=== PATIENT | female | born 1935 | race American Indian/Alaskan Native ===

== ENCOUNTER 2018-02-26 17:22 | Emergency (ER) | payer MEDICARE ==
[2018-02-26 17:48] VITALS: BP 168/83; RESP 18; TEMP 99.2
--- NOTE | 2018-02-26 19:04 | C.PDOC ---
History Of Present Illness 82 y/o female brought in by daughter for evaluation of left dental swelling/ pain. Daughter states she noticed swelling along the patients left jaw a few days ago. Patient has been eating soft foods. They tried to see dentist, who is currently away. They have an appointment for Mar 03. Then they tried to see PMD Dr. Rupinder Bee, who was also not in the office. No fever. No swollen glands. Time Seen by Provider: 02/26/18 18:35 Chief Complaint (Nursing): Dental Pain History Per: Patient History/Exam Limitations: no limitations Onset/Duration Of Symptoms: Days Current Symptoms Are (Timing): Still Present Past Medical History Reviewed: Historical Data, Nursing Documentation, Vital Signs Vital Signs: Last Vital Signs Temp 99.2 F 02/26/18 17:44 Pulse 80 02/26/18 17:44 Resp 18 02/26/18 17:44 BP 168/83 H 02/26/18 17:44 Pulse Ox 98 02/26/18 19:08 - Medical History PMH: HTN Surgical History: Pacemaker Family History: States: No Known Family Hx - Social History Hx Alcohol Use: No Hx Substance Use: No - Immunization History Hx Tetanus Toxoid Vaccination: No Hx Influenza Vaccination: No Hx Pneumococcal Vaccination: No Review Of Systems Except As Marked, All Systems Reviewed And Found Negative. Constitutional: Negative for: Fever, Chills ENT: Positive for: Other (Left jaw pain and swelling, with gum swelling) Cardiovascular: Negative for: Chest Pain Respiratory: Negative for: Shortness of Breath Gastrointestinal: Negative for: Vomiting, Diarrhea Neurological: Negative for: Weakness, Numbness Physical Exam - Physical Exam Appears: Non-toxic, No Acute Distress Skin: Normal Color, Warm, Dry Head: Atraumatic, Normacephalic Eye(s): bilateral: Normal Inspection, PERRL, EOMI Teeth: Other (Partial plate to lower mandible) Gingiva: Swelling (mild swelling along gingiva at left lower anterior gum line, (+) tenderness) Neck: Normal ROM, Supple Lymphatic: No Adenopathy Chest: Symmetrical Cardiovascular: Rhythm Regular, No Murmur Respiratory: Normal Breath Sounds, No Rales, No Rhonchi, No Wheezing Extremity: Bilateral: Atraumatic, Normal Color And Temperature, Normal ROM Neurological/Psych: Oriented x3, Normal Speech Gait: Steady ED Course And Treatment O2 Sat by Pulse Oximetry: 98 (RA) Pulse Ox Interpretation: Normal - Physician Consult Information Time Consulting Physician Contacted: 19:03 Physician Contacted: Rupinder Aguilar Disposition Counseled Patient/Family Regarding: Diagnosis, Need For Followup, Rx Given - Disposition Referrals: Rupinder Aguilar MD [Staff Provider] - Disposition: HOME/ ROUTINE Disposition Time: 19:11 Condition: STABLE Additional Instructions: Do a salt water rinse after meals. Take Tylenol as needed for pain. Prescriptions: Amoxicillin 875 mg PO BID #20 tablet Instructions: Tooth Abscess (DC) Forms: [id number] (German) - Clinical Impression Clinical Impression: Dental abscess - Scribe Statement The provider has reviewed the documentation as recorded by the Scribe (Claudia Dominguez) Provider Attestation: All medical record entries made by the Scribe were at my direction and personally dictated by me. I have reviewed the chart and agree that the record accurately reflects my personal performance of the history, physical exam, medical decision making, and the department course for this patient. I have also personally directed, reviewed, and agree with the discharge instructions and disposition.
[2018-02-26] MEDS ORDERED: Amoxicillin-Clav 875-125 mg Tab PO ONE (19:23)
[2018-02-26 19:34] VITALS: PULSE 88; O2SAT 99
== END 2018-02-26 19:35 | disposition home or self-care (01) ==
LOC: C.ER 17:22
DX: K04.7 Periapical abscess without sinus (principal)

== ENCOUNTER 2018-09-16 14:03 | Observation (INO) | payer MEDICARE ==
[2018-09-16 16:31] LABS: BASO # 0.1 K/uL (0.0-0.2); BASO % 0.6 % (0.0-2.0); EOS % 0.3 % (0.0-4.0); HEMOGLOBIN 10.4 g/dL (11.0-16.0); LYMPH # 1.9 K/uL (1.0-4.3); LYMPH % 23.1 % (20.0-40.0); MEAN CORPUSCULAR HEMOGLOBIN 26.5 pg (27.0-31.0); MEAN CORPUSCULAR HGB CONC 31.6 g/dL (33.0-37.0); MONO # 0.7 K/uL (0.0-0.8); MONO % 8.5 % (0.0-10.0); NEUT # 5.7 K/uL (1.8-7.0); NEUT % 67.5 % (50.0-75.0); NRBC % 0.1 % (0.0-2.0); RBC 3.91 Mil/uL (3.80-5.20); RED CELL DISTRIBUTION WIDTH 15.2 % (11.5-14.5); WHITE BLOOD COUNT 8.4 K/uL (4.8-10.8)
--- NOTE | 2018-09-16 16:40 | RAD ---
Date of service: 09/16/2018 PROCEDURE: CHEST RADIOGRAPH, 1 VIEW HISTORY: chest pain COMPARISON: None available. FINDINGS: LUNGS: Clear. PLEURA: No pneumothorax or pleural fluid seen. CARDIOVASCULAR: There is presence of aortic atherosclerotic calcification on x-ray. Cardiomegaly Position/ configuration of pacemaker Satisfactory. No significant appearing pulmonary venous congestion. OSSEOUS STRUCTURES: Bilateral shoulder arthrosis VISUALIZED UPPER ABDOMEN: Normal. OTHER FINDINGS: None. IMPRESSION: No acute cardiopulmonary pathology noted.
[2018-09-16 16:52] LABS: ALBUMIN 4.6 g/dL (3.5-5.0); AST/SGOT 29 U/L (14-36); BLOOD UREA NITROGEN 26 mg/dL (7-17); CALCIUM 10.3 mg/dl (8.6-10.4); GFR NON-AFRICAN AMERICAN 48; INR 1.4; PROTHROMBIN TIME 14.8 SECONDS (9.7-12.2)
[2018-09-16 17:03] LABS: B-TYPE NATRIURETIC PEPTIDE 363 pg/mL (0-900)
--- NOTE | 2018-09-16 17:03 | C.PDOC ---
History Of Present Illness 83 y/o female,w/PMhx of diabetes, HTN,and pacemaker, presents to the ER for pacemaker battery change. Patient states that she went to her PMD, who referred her to , web site admin. Dr. Medina advised her to the go the ER so she can be admitted for pacemaker battery change.Denies having fever,chills, CP,SOB, nausea, and vomiting. Time Seen by Provider: 09/16/18 15:49 Chief Complaint (Nursing): Medical Clearance History Per: Patient History/Exam Limitations: no limitations Onset/Duration Of Symptoms: Days Current Symptoms Are (Timing): Still Present Severity: Moderate Past Medical History Reviewed: Historical Data, Nursing Documentation, Vital Signs Vital Signs: Last Vital Signs Temp 98.3 F 09/16/18 15:47 Pulse 85 09/16/18 14:36 Resp 16 09/16/18 14:36 BP 166/70 H 09/16/18 14:36 Pulse Ox 100 09/16/18 14:36 - Medical History PMH: HTN Surgical History: Pacemaker Family History: States: No Known Family Hx - Social History Hx Alcohol Use: No Hx Substance Use: No - Immunization History Hx Tetanus Toxoid Vaccination: No Hx Influenza Vaccination: No Hx Pneumococcal Vaccination: No Review Of Systems Except As Marked, All Systems Reviewed And Found Negative. Constitutional: Negative for: Fever, Chills Cardiovascular: Negative for: Chest Pain Respiratory: Negative for: Shortness of Breath Gastrointestinal: Negative for: Nausea, Vomiting Physical Exam - Physical Exam Appears: Non-toxic, No Acute Distress Skin: Normal Color, Warm, Dry Head: Atraumatic, Normacephalic Eye(s): bilateral: Normal Inspection Nose: Normal Oral Mucosa: Moist Neck: Supple Chest: Symmetrical Cardiovascular: Rhythm Regular Respiratory: Normal Breath Sounds, No Rales, No Rhonchi, No Wheezing Gastrointestinal/Abdominal: Normal Exam, Soft, No Tenderness, No Guarding, No Rebound Neurological/Psych: Oriented x3, Normal Speech ED Course And Treatment - Laboratory Results Result Diagrams: 09/16/18 16:20 09/16/18 16:20 Lab Results: PT 14.8 SECONDS (9.7-12.2) H 09/16/18 16:20 INR 1.4 09/16/18 16:20 APTT 38 SECONDS (21-34) H 09/16/18 16:20 Total Bilirubin 0.4 mg/dL (0.2-1.3) 09/16/18 16:20 AST 29 U/L (14-36) 09/16/18 16:20 Alkaline Phosphatase 92 U/L (38-126) 09/16/18 16:20 Total Protein 9.1 g/dL (6.3-8.3) H 09/16/18 16:20 Albumin 4.6 g/dL (3.5-5.0) 09/16/18 16:20 Globulin 4.6 gm/dL (2.2-3.9) H 09/16/18 16:20 Albumin/Globulin Ratio 1.0 (1.0-2.1) 09/16/18 16:20 ECG Rhythm: AV Paced Rate From EC O2 Sat by Pulse Oximetry: 100 (RA) Pulse Ox Interpretation: Normal Medical Decision Making Medical Decision Making: Plan: --Labs --EKG --CXR Updates: 1734: Dr. Medina says to admit to . Patient is NPO after midnight for procedure in the morning 1737: Dr. Amaral agrees to accept patient. Disposition - Disposition Forms: [facility] (Irish) - Scribe Statement The provider has reviewed the documentation as recorded by the Scribe Veronica Wong Provider Attestation: All medical record entries made by the Scribe were at my direction and personally dictated by me. I have reviewed the chart and agree that the record accurately reflects my personal performance of the history, physical exam, medical decision making, and the department course for this patient. I have also personally directed, reviewed, and agree with the discharge instructions and disposition.
[2018-09-16 17:14] LABS: ALT/SGPT < 6 U/L (9-52)
--- NOTE | 2018-09-17 00:02 | CP.PCM.CON ---
History of Present Illness - History of Present Illness History of Present Illness: 83 y/o female,w/PMhx of diabetes, HTN,and pacemaker, presents to the ER for pacemaker battery change. Patient states that she went to her PMD, sent by me to be admitted for pacemaker battery change.Denies having fever,chills, CP,SOB, n ausea, and vomiting. Chief Complaint (Nursing): PPM battery run out History Per: Patient History/Exam Limitations: no limitations Onset/Duration Of Symptoms: Days Current Symptoms Are (Timing): Still Present Severity: Moderate Past Medical History Reviewed: Historical Data, Nursing Documentation, Vital Signs Vital Signs: Last Vital Signs Temp 98.3 F 09/16/18 15:47 Pulse 85 09/16/18 14:36 Resp 16 09/16/18 14:36 BP 166/70 H 09/16/18 14:36 Pulse Ox 100 09/16/18 14:36 - Medical History PMH: HTN Surgical History: Pacemaker Family History: States: No Known Family Hx - Social History Hx Alcohol Use: No Hx Substance Use: No - Immunization History Hx Tetanus Toxoid Vaccination: No Hx Influenza Vaccination: No Hx Pneumococcal Vaccination: No Review Of Systems Except As Marked, All Systems Reviewed And Found Negative. Constitutional: Negative for: Fever, Chills Cardiovascular: Negative for: Chest Pain Respiratory: Negative for: Shortness of Breath Gastrointestinal: Negative for: Nausea, Vomiting Physical Exam - Physical Exam Appears: Non-toxic, No Acute Distress Skin: Normal Color, Warm, Dry Head: Atraumatic, Normacephalic Eye(s): bilateral: Normal Inspection Nose: Normal Oral Mucosa: Moist Neck: Supple Chest: Symmetrical Cardiovascular: Rhythm Regular Respiratory: Normal Breath Sounds, No Rales, No Rhonchi, No Wheezing Gastrointestinal/Abdominal: Normal Exam, Soft, No Tenderness, No Guarding, No Rebound Neurological/Psych: Oriented x3, Normal Speech Past Patient History - Past Social History Smoking Status: Never Smoked - CARDIAC Hx Hypertension: Yes Hx Pacemaker: Yes - ENDOCRINE/METABOLIC Hx Diabetes Mellitus Type 2: Yes - PSYCHIATRIC Hx Substance Use: No - SURGICAL HISTORY Hx Surgeries: Yes Other/Comment: Pace MAker insertion 15 yrs ago - ANESTHESIA Hx Anesthesia: Yes Hx Anesthesia Reactions: No Hx Malignant Hyperthermia: No Meds Allergies/Adverse Reactions: Allergies Allergy/AdvReac Type Severity Reaction Status Date / Time No Known Allergies Allergy Verified 09/16/18 14:39 - Medications Medications: Current Medications Aspirin (Aspirin) 325 mg PO DAILY [facility] Ezetimibe (Zetia) 10 mg PO DAILY [facility] Enoxaparin Sodium (Lovenox) 40 mg SC DAILY [facility] Ferrous Gluconate (Fergon) 324 mg PO DAILY [facility] Hydrochlorothiazide (Hydrodiuril) 25 mg PO DAILY [facility] Influenza Virus Vaccine (Flucelvax Quad 8621-8200 Syr) 60 mcg IM .ONCE ONE Stop: 09/18/18 10:01 Losartan Potassium (Cozaar) 100 mg PO DAILY [facility] Metformin HCl (Glucophage) 850 mg PO DAILY [facility] Pneumococcal Polyvalent Vaccine (Pneumovax 23 Vaccine) 0.5 ml IM .ONCE ONE Stop: 09/18/18 10:01 Rosuvastatin Calcium (Crestor) 10 mg PO HS [facility] Last Admin: 09/16/18 21:26 Dose: 10 mg Results - Vital Signs Recent Vital Signs: Last Vital Signs Temp 98.5 F 09/16/18 21:09 Pulse 78 09/16/18 21:36 Resp 20 09/16/18 21:09 BP 189/89 H 09/16/18 21:34 Pulse Ox 97 09/16/18 21:09 - Labs Result Diagrams: 09/16/18 16:20 09/16/18 16:20 Labs: Laboratory Results - last 24 hr 09/16/18 09/16/18 09/16/18 16:20 16:20 16:20 WBC 8.4 RBC 3.91 Hgb 10.4 L Hct 32.8 L MCV 84.0 MCH 26.5 L MCHC 31.6 L RDW 15.2 H Plt Count 333 MPV 9.0 Neut % (Auto) 67.5 Lymph % (Auto) 23.1 Rolette % (Auto) 8.5 Eos % (Auto) 0.3 Baso % (Auto) 0.6 Neut # (Auto) 5.7 Lymph # (Auto) 1.9 Rolette # (Auto) 0.7 Eos # (Auto) 0.0 Baso # (Auto) 0.1 PT 14.8 H INR 1.4 APTT 38 H Sodium 137 Potassium 4.6 Chloride 100 Carbon Dioxide 27 Anion Gap 15 BUN 26 H Creatinine 1.1 Est GFR ( Amer) 58 Est GFR (Non-Af Amer) 48 Random Glucose 135 H Calcium 10.3 Total Bilirubin 0.4 AST 29 ALT < 6 L Alkaline Phosphatase 92 Troponin I < 0.0120 NT-Pro-B Natriuret Pep 363 Total Protein 9.1 H Albumin 4.6 Globulin 4.6 H Albumin/Globulin Ratio 1.0 Assessment & Plan - Assessment and Plan (Free Text) Assessment: Hx of Complete Heart block s/p PPM For battery change tomorrow by Dr. Bill
--- NOTE | 2018-09-17 00:10 | CP.PCM.HP ---
Present on Admission - Present on Admission Any Indicators Present on Admission: No Past Patient History - Past Social History Smoking Status: Never Smoked - CARDIAC Hx Hypertension: Yes Hx Pacemaker: Yes - ENDOCRINE/METABOLIC Hx Diabetes Mellitus Type 2: Yes - PSYCHIATRIC Hx Substance Use: No - SURGICAL HISTORY Hx Surgeries: Yes Other/Comment: Pace MAker insertion 15 yrs ago - ANESTHESIA Hx Anesthesia: Yes Hx Anesthesia Reactions: No Hx Malignant Hyperthermia: No Meds Allergies/Adverse Reactions: Allergies Allergy/AdvReac Type Severity Reaction Status Date / Time No Known Allergies Allergy Verified 09/16/18 14:39 Results - Vital Signs Recent Vital Signs: Last Vital Signs Temp 98.5 F 09/16/18 21:09 Pulse 78 09/16/18 21:36 Resp 20 09/16/18 21:09 BP 189/89 H 09/16/18 21:34 Pulse Ox 97 09/16/18 21:09 - Labs Result Diagrams: 09/16/18 16:20 09/16/18 16:20 Labs: Laboratory Results - last 24 hr 09/16/18 09/16/18 09/16/18 16:20 16:20 16:20 WBC 8.4 RBC 3.91 Hgb 10.4 L Hct 32.8 L MCV 84.0 MCH 26.5 L MCHC 31.6 L RDW 15.2 H Plt Count 333 MPV 9.0 Neut % (Auto) 67.5 Lymph % (Auto) 23.1 Cochran % (Auto) 8.5 Eos % (Auto) 0.3 Baso % (Auto) 0.6 Neut # (Auto) 5.7 Lymph # (Auto) 1.9 [place]chran # (Auto) 0.7 Eos # (Auto) 0.0 Baso # (Auto) 0.1 PT 14.8 H INR 1.4 APTT 38 H Sodium 137 Potassium 4.6 Chloride 100 Carbon Dioxide 27 Anion Gap 15 BUN 26 H Creatinine 1.1 Est GFR ( Amer) 58 Est GFR (Non-Af Amer) 48 Random Glucose 135 H Calcium 10.3 Total Bilirubin 0.4 AST 29 ALT < 6 L Alkaline Phosphatase 92 Troponin I < 0.0120 NT-Pro-B Natriuret Pep 363 Total Protein 9.1 H Albumin 4.6 Globulin 4.6 H Albumin/Globulin Ratio 1.0
--- NOTE | 2018-09-17 05:34 | HP ---
CHIEF COMPLAINT: The patient's pacemaker battery is not functioning. HISTORY OF PRESENT ILLNESS: This is an 83-year-old female with history of diabetes, hypertension, hyperlipidemia. She is compliant with diet, medication, and followup. She was seen by her senior director of global commercial technology solutions. Dr. Bee, and she was referred to emergency room as the patient had pacemaker battery expiration and her pacemaker battery is not functioning, and there is a risk of impending cardiac arrhythmia. The patient is in the bed with her daughter on the emergency room. No acute cardiopulmonary distress. She denies any history of dyspnea on exertion, orthopnea, or PND. She gets dizzy at times. She denies any history of chest pain. She denies any history of cough, sore throat, or runny nose. She denies any history of polyuria, polydipsia, or polyphagia. She denies any history of hematuria or pyuria. She denies any history of sneezing, itchy eyes, or itchy nose. There is no history of skin rash. There is no history of back pain, but she has knee pain. PAST MEDICAL HISTORY: Heart block, permanent pacemaker placement, hypertension, hyperlipidemia. SOCIAL HISTORY: She is nonsmoker, non-ETOH user. CURRENT MEDICATIONS: At home, she is on aspirin, metformin, Benicar/HCTZ, Zocor, ferrous sulfate, and Zetia. FAMILY HISTORY: Noncontributory. PHYSICAL EXAMINATION: GENERAL: An elderly female, not in any acute cardiopulmonary distress. VITAL SIGNS: Blood pressure 189/89, pulse 88, respiratory rate 20, temperature 98.5. SKIN: Senile turgor. No bruises. No purpura. No petechiae. No ecchymosis. HEENT: Atraumatic and normocephalic. Negative pallor. Negative jaundice. Extraocular movements are intact. NECK: Supple. No JVD. No lymph node. No thyromegaly. No carotid bruit. CHEST WALL: Bilateral symmetrical expansion. No tenderness. No deformity. No masses. LUNGS: Bilaterally clear. No rales. No rhonchi. CARDIOVASCULAR SYSTEM: PMI not localized. S1 and S2, regular. No heave. No thrill. ABDOMEN: Soft, nontender. Bowel sounds are positive. RECTAL: No masses. No bleed. EXTREMITIES: No clubbing, cyanosis, or edema. CENTRAL NERVOUS SYSTEM: Awake, alert, and oriented x3. Cranial nerves II through XII are normal. Power 5/5 x4. Plantars are downgoing. ASSESSMENT: 1. Pacemaker battery malfunction. The patient is for pacemaker battery change. 2. Diabetes. 3. Hypertension. 4. Hyperlipidemia. PLAN: Admit. Detailed orders are written. Seen and examined. Baldemar Amaral MD
[2018-09-17] MEDS: Enoxaparin 40 mg Syringe SC SCH (10:20)
[2018-09-17] MEDS ORDERED: Thrombin Topical 5,000 Int Units Spray Kit TOP ONE (12:15)
[2018-09-17] MEDS ORDERED: ceFAZolin 1 GM in Sodium Chloride 0.9% 100 ML IVPB ONE (12:30)
[2018-09-17] MEDS ORDERED: Gentamicin 80 mg in 0.9% NS 80 MG/100 ML BAG IVPB ONE (13:00)
[2018-09-17] MEDS ORDERED: Lidocaine Hydrochloride 10 ML INJ ONE (13:16)
[2018-09-17] MEDS ORDERED: Lidocaine 2% MPF (5 ml) Inj ONE (13:19)
[2018-09-17] MEDS ORDERED: Midazolam 2 MG/2 ML VIAL ONE (13:49)
--- NOTE | 2018-09-17 14:24 | PCM.OP ---
Operative Report - Operative Report Date of Surgery/Procedure: 09/17/18 Time of Surgery/Procedure: 14:21 Surgeon: yogi Anesthesia/Sedation: MAC Pre-Operative Diagnosis: Complete heart block Post-Operative Diagnosis: complete heart block Indication for Surgery: complete heart block Operative Findings: complete heart block Procedure/Operation Description: Patient was brought to the operating room in a post absorptive sate; after informed consent the pectoral regions were cleansed and prepped in the usual fashion; prophylactic antibiotics were administered Oxygen saturation rhythm and vital signs were monitored; defibrillation pads were placed Next 1% lidocaine was injected subcutaneously; next a 2 cm incision was made over the old pacemaker generator and by blunt dissection carefully avoiding damage to the preexisting leads; next the generator was removed and the pacing leads were checked and found satisfactory and unchanged in their pacing and sensing characteristics; next a new pacemaker generator (Venturepax) introduced in the field and attached to the leads; pacing impedance and sense parameters remain unaltered; next the generator was placed in the pocket and the wound was closed in layers. Patient was wheeled back to the recovery room in a stable fashion Complications: none Blood loss: 2 cc Plan Antibiotics 1 gm ancef x 3 doses Estimated Blood Loss: 2 cc Complications: none Discharge & Condition: stable
--- NOTE | 2018-09-17 14:26 | CP.PCM.PN ---
Subjective - Date & Time of Evaluation Date of Evaluation: 09/17/18 Time of Evaluation: 14:24 - Subjective Subjective: Ms. Celeste underwent a pacemaker generator change without complications Plan Observe ancef 1 gm x 3 doses every 8 hours wound care sutures removal 1 PM [address]. [address] [place] [address] Tel: [phone] Objective - Vital Signs/Intake and Output Vital Signs (last 24 hours): Temp Pulse Resp BP Pulse Ox 97.9 F 74 20 165/78 H 95 09/17/18 07:25 09/17/18 10:18 09/17/18 07:25 09/17/18 10:18 09/17/18 07:25 Intake and Output: 09/17/18 09/17/18 06:59 18:59 Intake Total 120 Balance 120 - Medications Medications: Current Medications Aspirin (Aspirin) 325 mg PO DAILY [facility] Last Admin: 09/17/18 10:20 Dose: 325 mg Ezetimibe (Zetia) 10 mg PO DAILY [facility] Last Admin: 09/17/18 10:37 Dose: 10 mg Enoxaparin Sodium (Lovenox) 40 mg SC DAILY [facility] Last Admin: 09/17/18 10:20 Dose: Not Given Ferrous Gluconate (Fergon) 324 mg PO DAILY [facility] Last Admin: 09/17/18 10:19 Dose: 324 mg Hydrochlorothiazide (Hydrodiuril) 25 mg PO DAILY [facility] Last Admin: 09/17/18 10:19 Dose: 25 mg Influenza Virus Vaccine (Flucelvax Quad 5761-9019 Syr) 60 mcg IM .ONCE ONE Stop: 09/18/18 10:01 Losartan Potassium (Cozaar) 100 mg PO DAILY [facility] Last Admin: 09/17/18 10:20 Dose: 100 mg Metformin HCl (Glucophage) 850 mg PO DAILY [facility] Last Admin: 09/17/18 10:20 Dose: 850 mg Pneumococcal Polyvalent Vaccine (Pneumovax 23 Vaccine) 0.5 ml IM .ONCE ONE Stop: 09/18/18 10:01 Rosuvastatin Calcium (Crestor) 10 mg PO [facility] Last Admin: 09/16/18 21:26 Dose: 10 mg - Labs Labs: 09/16/18 16:20 09/16/18 16:20 PT 14.8 SECONDS (9.7-12.2) H 03/19/19 16:20 INR 1.4 09/16/18 16:20 APTT 38 SECONDS (21-34) H 09/16/18 16:20
[2018-09-17] MEDS ORDERED: Oxycodone/Acetaminophen 5/325 mg Tab PO PRN (15:10)
[2018-09-17] MEDS: ceFAZolin IV 1 gm in Dextrose 1 GM/50 ML BAG IVPB SCH (17:57)
--- NOTE | 2018-09-17 18:56 | CARD ---
APPROVED REPORT Date of service: 09/16/2018 EKG Measurement Heart [id number] MD [id number] <Conclusion> Poor data quality, interpretation may be adversely affected Atrial-sensed ventricular-paced rhythm Abnormal ECG
--- NOTE | 2018-09-17 22:53 | CP.PCM.PN ---
Subjective - Date & Time of Evaluation Date of Evaluation: 09/17/18 Time of Evaluation: 09:00 - Subjective Subjective: dictated Objective - Vital Signs/Intake and Output Vital Signs (last 24 hours): Temp Pulse Resp BP Pulse Ox 97.9 F 74 20 165/78 H 95 09/17/18 07:25 09/17/18 10:18 09/17/18 07:25 09/17/18 10:18 09/17/18 19:00 Intake and Output: 09/17/18 09/18/18 18:59 06:59 Intake Total 500 Balance 500 - Medications Medications: Current Medications Amlodipine Besylate (Norvasc) 5 mg PO DAILY [facility] Aspirin (Aspirin) 325 mg PO DAILY [facility] Last Admin: 09/17/18 10:20 Dose: 325 mg Ezetimibe (Zetia) 10 mg PO DAILY [facility] Last Admin: 09/17/18 10:37 Dose: 10 mg Enoxaparin Sodium (Lovenox) 40 mg SC DAILY [facility] Last Admin: 09/17/18 10:20 Dose: Not Given Ferrous Gluconate (Fergon) 324 mg PO DAILY [facility] Last Admin: 09/17/18 10:19 Dose: 324 mg Hydrochlorothiazide (Hydrodiuril) 25 mg PO DAILY [facility] Last Admin: 09/17/18 10:19 Dose: 25 mg Cefazolin Sodium/Dextrose (Ancef Iv 1 Gm Duplex) 1 gm in 50 mls @ 100 mls/hr IVPB Q8H [facility]; Protocol Stop: 09/18/18 08:59 Last Admin: 09/17/18 17:57 Dose: 100 mls/hr Influenza Virus Vaccine (Flucelvax Quad 7199-4660 Syr) 60 mcg IM .ONCE ONE Stop: 09/18/18 10:01 Losartan Potassium (Cozaar) 100 mg PO DAILY [facility] Last Admin: 09/17/18 10:20 Dose: 100 mg Metformin HCl (Glucophage) 850 mg PO DAILY [facility] Last Admin: 09/17/18 10:20 Dose: 850 mg Oxycodone/Acetaminophen (Percocet 5/325 Mg Tab) 1 tab PO Q6H PRN PRN Reason: Pain, Mild (1-3) Stop: 09/20/18 15:11 Pneumococcal Polyvalent Vaccine (Pneumovax 23 Vaccine) 0.5 ml IM .ONCE ONE Stop: 09/18/18 10:01 Rosuvastatin Calcium (Crestor) 10 mg PO HS [facility] Last Admin: 09/17/18 21:53 Dose: 10 mg - Labs Labs: 09/16/18 16:20 09/16/18 16:20 PT 14.8 SECONDS (9.7-12.2) H 09/16/18 16:20 INR 1.4 09/16/18 16:20 APTT 38 SECONDS (21-34) H 09/16/18 16:20
[2018-09-18] MEDS: ceFAZolin IV 1 gm in Dextrose 1 GM/50 ML BAG IVPB SCH ×2 (00:22→08:35)
--- NOTE | 2018-09-18 00:38 | CP.PCM.PN ---
Subjective - Date & Time of Evaluation Date of Evaluation: 09/17/18 Time of Evaluation: 19:45 - Subjective Subjective: Patient s/p Pacemaker generator change No cardiac events Stable Objective - Vital Signs/Intake and Output Vital Signs (last 24 hours): Temp Pulse Resp BP Pulse Ox 97.9 F 74 20 165/78 H 95 09/17/18 07:25 09/17/18 10:18 09/17/18 07:25 09/17/18 10:18 09/18/18 00:06 Intake and Output: 09/17/18 09/18/18 18:59 06:59 Intake Total 500 Balance 500 - Medications Medications: Current Medications Amlodipine Besylate (Norvasc) 5 mg PO DAILY [facility] Aspirin (Aspirin) 325 mg PO DAILY [facility] Last Admin: 09/17/18 10:20 Dose: 325 mg Ezetimibe (Zetia) 10 mg PO DAILY [facility] Last Admin: 09/17/18 10:37 Dose: 10 mg Enoxaparin Sodium (Lovenox) 40 mg SC DAILY [facility] Last Admin: 09/17/18 10:20 Dose: Not Given Ferrous Gluconate (Fergon) 324 mg PO DAILY [facility] Last Admin: 09/17/18 10:19 Dose: 324 mg Hydrochlorothiazide (Hydrodiuril) 25 mg PO DAILY [facility] Last Admin: 09/17/18 10:19 Dose: 25 mg Cefazolin Sodium/Dextrose (Ancef Iv 1 Gm Duplex) 1 gm in 50 mls @ 100 mls/hr IVPB Q8H [facility]; Protocol Stop: 09/18/18 08:59 Last Admin: 09/18/18 00:22 Dose: 100 mls/hr Influenza Virus Vaccine (Flucelvax Quad 4707-6024 Syr) 60 mcg IM .ONCE ONE Stop: 09/18/18 10:01 Losartan Potassium (Cozaar) 100 mg PO DAILY [facility] Last Admin: 09/17/18 10:20 Dose: 100 mg Metformin HCl (Glucophage) 850 mg PO DAILY [facility] Last Admin: 09/17/18 10:20 Dose: 850 mg Oxycodone/Acetaminophen (Percocet 5/325 Mg Tab) 1 tab PO Q6H PRN PRN Reason: Pain, Mild (1-3) Stop: 09/20/18 15:11 Pneumococcal Polyvalent Vaccine (Pneumovax 23 Vaccine) 0.5 ml IM .ONCE ONE Stop: 09/18/18 10:01 Rosuvastatin Calcium (Crestor) 10 mg PO HS [facility] Last Admin: 09/17/18 21:53 Dose: 10 mg - Labs Labs: 09/16/18 16:20 09/16/18 16:20 PT 14.8 SECONDS (9.7-12.2) H 09/16/18 16:20 INR 1.4 09/16/18 16:20 APTT 38 SECONDS (21-34) H 09/16/18 16:20
[2018-09-18 00:58] VITALS: PULSE 78
--- NOTE | 2018-09-18 03:27 | PN ---
DATE: 09/17/2018 SUBJECTIVE: The patient is status post pacemaker battery change. The patient is on Ancef. She is afebrile. No shortness of breath. No chest pain. No nausea, vomiting, and she wants to go home. PHYSICAL EXAMINATION: VITAL SIGNS: Blood pressure 165/78, pulse 74, respiratory rate 20, temperature 97.9. LUNGS: Clear. No rales. No rhonchi. CARDIOVASCULAR SYSTEM: S1, S2, plus S4 positive. ABDOMEN: Soft. Nontender. Bowel sounds are positive. ASSESSMENT: 1. Heart block with permanent pacemaker and pacemaker battery malfunction, status post pacemaker battery change. 2. Hypertension. 3. Type 2 diabetes. 4. Hyperlipidemia. PLAN: Continue postop care and Ancef. Monitor the patient. Add Norvasc for poor blood pressure control. Baldemar Amaral MD
[2018-09-18 08:43] VITALS: BP 165/81; RESP 18; TEMP 98.4; O2SAT 97
[2018-09-18] MEDS ORDERED: Pneumococcal 23-Valent Vaccine IM ONE (10:00)
[2018-09-18] MEDS ORDERED: Influenza Vaccine 60 mcg/0.5 mL SYR (4YR UP) IM ONE (10:00)
[2018-09-18] MEDS: Enoxaparin 40 mg Syringe SC SCH (10:17)
--- NOTE | 2018-09-18 12:37 | CP.PCM.PN ---
Subjective - Date & Time of Evaluation Date of Evaluation: 09/18/18 Time of Evaluation: 11:15 - Subjective Subjective: patient seen today, denies any chest pain, dizziness, sob S/p pacemaker battery change no Overnight events repored by RN No overnight events recorded on monitor vss reviewed - stable Objective - Vital Signs/Intake and Output Vital Signs (last 24 hours): Temp Pulse Resp BP Pulse Ox 98.4 F 78 18 165/81 H 97 09/18/18 07:17 09/18/18 07:17 09/18/18 07:17 09/18/18 07:17 09/18/18 09:00 Intake and Output: 09/18/18 09/18/18 06:59 18:59 Intake Total 550 Balance 550 - Medications Medications: Current Medications Amlodipine Besylate (Norvasc) 5 mg PO DAILY [facility] Last Admin: 09/18/18 10:16 Dose: 5 mg Aspirin (Aspirin) 325 mg PO DAILY [facility] Last Admin: 09/18/18 10:14 Dose: 325 mg Ezetimibe (Zetia) 10 mg PO DAILY [facility] Last Admin: 09/18/18 10:16 Dose: 10 mg Enoxaparin Sodium (Lovenox) 40 mg SC DAILY [facility] Last Admin: 09/18/18 10:17 Dose: Not Given Ferrous Gluconate (Fergon) 324 mg PO DAILY [facility] Last Admin: 09/18/18 10:16 Dose: 324 mg Hydrochlorothiazide (Hydrodiuril) 25 mg PO DAILY [facility] Last Admin: 09/18/18 11:15 Dose: 25 mg Losartan Potassium (Cozaar) 100 mg PO DAILY [facility] Last Admin: 09/18/18 10:15 Dose: 100 mg Metformin HCl (Glucophage) 850 mg PO DAILY [facility] Last Admin: 09/18/18 11:15 Dose: 850 mg Oxycodone/Acetaminophen (Percocet 5/325 Mg Tab) 1 tab PO Q6H PRN PRN Reason: Pain, Mild (1-3) Stop: 09/20/18 15:11 Rosuvastatin Calcium (Crestor) 10 mg PO HS [facility] Last Admin: 09/17/18 21:53 Dose: 10 mg - Labs Labs: 09/16/18 16:20 09/16/18 16:20 PT 14.8 SECONDS (9.7-12.2) H 09/16/18 16:20 INR 1.4 09/16/18 16:20 APTT 38 SECONDS (21-34) H 09/16/18 16:20 Assessment and Plan - Assessment and Plan (Free Text) Assessment: A/P 83 y/o female,w/PMhx of diabetes, HTN,and pacemaker, admitted for for pacemaker battery change s/p pacemaker generator change no overnight events [facility] D/w Dr. Amaral cleared for discharge home today and f/u with Dr. Lucien Bee and Dr. iBll office on 09/22/18 Discharge plan discussed with patient , who understand s and agrees with plan
--- NOTE | 2018-09-18 21:54 | CP.PCM.DIS ---
Provider - Provider Date of Admission: 09/16/18 17:39 Attending physician: Baldemar Amaral MD Consults: 09/16/18 18:05 Cardiology Consult Stat Comment: Consulting Provider: Devang Medina Consulting Physician: Devang Medina Reason for Consult: AVB 09/17/18 00:05 Cardiology Consult Routine Comment: Please notify attending Consulting Provider: Sanaz Bill Consulting Physician: Sanaz Bill Reason for Consult: Pace maker battery ran out Time Spent in preparation of Discharge (in minutes): 30 Hospital Course - Lab Results Lab Results: Most Recent Lab Values WBC 8.4 K/uL (4.8-10.8) 09/16/18 16:20 RBC 3.91 Mil/uL (3.80-5.20) 09/16/18 16:20 Hgb 10.4 g/dL (11.0-16.0) L 09/16/18 16:20 Hct 32.8 % (34.0-47.0) L 09/16/18 16:20 MCV 84.0 fL (81.0-99.0) 09/16/18 16:20 MCH 26.5 pg (27.0-31.0) L 09/16/18 16:20 MCHC 31.6 g/dL (33.0-37.0) L 09/16/18 16:20 RDW 15.2 % (11.5-14.5) H 09/16/18 16:20 Plt Count 333 K/uL (130-400) 09/16/18 16:20 MPV 9.0 fL (7.2-11.7) 09/16/18 16:20 Neut % (Auto) 67.5 % (50.0-75.0) 09/16/18 16:20 Lymph % (Auto) 23.1 % (20.0-40.0) 09/16/18 16:20 Mcculloch % (Auto) 8.5 % (0.0-10.0) 09/16/18 16:20 Eos % (Auto) 0.3 % (0.0-4.0) 09/16/18 16:20 Baso % (Auto) 0.6 % (0.0-2.0) 09/16/18 16:20 Neut # (Auto) 5.7 K/uL (1.8-7.0) 09/16/18 16:20 Lymph # (Auto) 1.9 K/uL (1.0-4.3) 09/16/18 16:20 Mcculloch # (Auto) 0.7 K/uL (0.0-0.8) 09/16/18 16:20 Eos # (Auto) 0.0 K/uL (0.0-0.7) 09/16/18 16:20 Baso # (Auto) 0.1 K/uL (0.0-0.2) 09/16/18 16:20 PT 14.8 SECONDS (9.7-12.2) H 09/16/18 16:20 INR 1.4 09/16/18 16:20 APTT 38 SECONDS (21-34) H 09/16/18 16:20 Sodium 137 mmol/L (132-148) 09/16/18 16:20 Potassium 4.6 mmol/L (3.6-5.2) 09/16/18 16:20 Chloride 100 mmol/L (98-107) 09/16/18 16:20 Carbon Dioxide 27 mmol/L (22-30) 09/16/18 16:20 Anion Gap 15 (10-20) 09/16/18 16:20 BUN 26 mg/dL (7-17) H 09/16/18 16:20 Creatinine 1.1 mg/dL (0.7-1.2) 09/16/18 16:20 Est GFR ( Amer) 58 09/16/18 16:20 Est GFR (Non-Af Amer) 48 09/16/18 16:20 Random Glucose 135 mg/dL (65-105) H 09/16/18 16:20 Calcium 10.3 mg/dl (8.6-10.4) 09/16/18 16:20 Total Bilirubin 0.4 mg/dL (0.2-1.3) 09/16/18 16:20 AST 29 U/L (14-36) 09/16/18 16:20 ALT < 6 U/L (9-52) L 09/16/18 16:20 Alkaline Phosphatase 92 U/L (38-126) 09/16/18 16:20 Troponin I < 0.0120 ng/mL (0.00-0.120) 09/16/18 16:20 NT-Pro-B Natriuret Pep 363 pg/mL (0-900) 09/16/18 16:20 Total Protein 9.1 g/dL (6.3-8.3) H 09/16/18 16:20 Albumin 4.6 g/dL (3.5-5.0) 09/16/18 16:20 Globulin 4.6 gm/dL (2.2-3.9) H 09/16/18 16:20 Albumin/Globulin Ratio 1.0 (1.0-2.1) 09/16/18 16:20 Discharge Plan - Discharge Medications Prescriptions: amLODIPine [Norvasc] 5 mg PO DAILY #30 tab - Follow Up Plan Condition: GOOD Disposition: HOME/ ROUTINE Instructions: Pacemakers, Amlodipine Additional Instructions: Please f/u with Dr. Rupinder Bee office in 1 week please f/u with Dr. Bill office ( f/u and suture sal dc ) 1 PM,3.25.19,[address], [address] [place] [address] Tel: [phone] Please continue medication as per med. 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 Referrals: Sanaz Bill MD [Staff Provider] - Rupinder Aguilar MD [Staff Provider] -
--- NOTE | 2018-09-19 05:36 | DS ---
DISCHARGE DIAGNOSES: 1. Pacemaker battery malfunction. 2. Hypertension. 3. Diabetes. 4. Hyperlipidemia. HISTORY OF PRESENT ILLNESS AND HOSPITAL COURSE: This is an 83-year-old female with heart block with pacemaker. She had a battery malfunction. The patient was admitted to the floor. She was seen by Cardiology. Pacemaker battery was changed. The patient is for discharge. Condition upon discharge is stable. No events in the hospital. PHYSICAL EXAMINATION: VITAL SIGNS: Blood pressure 165/81, pulse 78, respiratory rate 18, temperature 98.4. LUNGS: Clear. CARDIOVASCULAR SYSTEM: S1 and S2, regular. ABDOMEN: Soft. PLAN: Discharge the patient. Monitor the patient. Baldemar Amaral MD
== END 2018-09-18 14:36 | disposition home or self-care (01) ==
LOC: C.ER 14:03 → C.9E 17:39 → C.5S 20:18
PROVIDERS: ADMIT Internal Medicine; ATTEND Internal Medicine
DX: Z45.010 Encounter for checking and testing of cardiac pacemaker pulse generator [battery] (principal); I10 Essential (primary) hypertension; I44.2 Atrioventricular block, complete; E11.9 Type 2 diabetes mellitus without complications; E78.5 Hyperlipidemia, unspecified
CPT/HCPCS: 33228; 71045; 80053; 83880; 84484; 85025; 85610; 85730; 93005; 97116; 97162; 99285; G0378; G8978; G8979; J0690; J1580; J2250; J3010